=== PATIENT | male | born 1955 | race Caucasian/White ===

== ENCOUNTER 2016-10-19 12:41 | Emergency (ER) | payer SELFPAY ==
[~2016-10-19] VITALS: Ht 170.2 cm; Wt 100.0 kg
[~2016-10-19 12:41] MED LIST: NORCO 325 MG-51 TAB PO; SAW PALMETTO PO
[2016-10-19 12:44] VITALS: TEMP 97.3
[2016-10-19 13:23] LABS: BASO % 0.2 % (0.0-2.0); EOS # 0.1 (0.0-0.7); EOS % 0.6 % (0-4.0); GRAN % 83.5 % (42.2-75.2); HEMOGLOBIN 17.5 g/dl (13.5-18.0); LYMPH % 9.9 % (20.0-51.0); MEAN CELL VOLUME 93 fl (80.0-100.0); MEAN CORPUSCULAR HEMOGLOBIN 33 pg (27.0-31.0); MEAN CORPUSCULAR HGB CONC 36 g/dl (33.0-37.0); MONO # 0.5 (0.1-0.6); MONO % 5.4 % (1.7-9.3); PLATELET COUNT 160 K/mm3 (130-400); REDCELL DISTRIBUTION WIDTH-CV 11.9 % (11.5-14.5); WHITE BLOOD COUNT 9.6 K/mm3 (4.8-10.8)
[2016-10-19] MEDS ORDERED: BEET EXTRACT (13:30)
[2016-10-19 13:38] LABS: ADJUSTED CALCIUM 8.9 mg/dL (8.4-10.2); ALANINE AMINOTRANSFERASE 44 U/L (21-72); ALBUMIN 4.6 gm/dL (3.5-5.0); ALKALINE PHOSPHATASE 68 U/L (50-136); ANION GAP 13 mmol/L (7-16); BILIRUBIN,TOTAL 0.7 mg/dL (0.0-1.0); BLOOD UREA NITROGEN 13 mg/dL (9-20); CALCIUM 9.4 mg/dL (8.4-10.2); CARBON DIOXIDE 27 mmol/L (22-30); CHLORIDE 101 mmol/L (98-107); CREATININE, serum 0.94 mg/dL (0.66-1.25); GLUCOSE 112 mg/dL (74-106); SODIUM 140 mmol/L (137-145); TOTAL PROTEIN 7.9 gm/dL (6.4-8.2)
[2016-10-19 13:41] LABS: PROTHROMBIN TIME 10.8 SECONDS (9.7-12.8)
[2016-10-19 13:44] LABS: PARTIAL THROMBOPLASTIN TIME 28.9 SECONDS (26.0-37.0)
[2016-10-19 13:50] LABS: C-REACTIVE PROTEIN < 0.5 mg/dL (0.0-0.9); TROPONIN-I < 0.012 ng/mL (0.000-0.034)
[2016-10-19 14:45] VITALS: BP 156/98; PULSE 79
== END 2016-10-19 14:58 | disposition home or self-care (01) ==
LOC: COL.ER 12:41
PROVIDERS: Family Medicine
DX: R55 Syncope and collapse (principal)

== ENCOUNTER 2017-02-17 08:07 | Emergency (ER) | payer SELFPAY ==
[~2017-02-17] VITALS: Ht 170.2 cm; Wt 102.3 kg
[~2017-02-17 08:07] MED LIST changes: +BEET EXTRACT
[2017-02-17 08:16] VITALS: TEMP 98.2
[2017-02-17] MEDS ORDERED: [UNRECOGNIZED DRUG - OTHER] PO (08:55)
[2017-02-17] MEDS ORDERED: PRINIVIL10 MG PO (08:56)
[2017-02-17] MEDS ORDERED: ZYRTEC ALLERGY10 MG PO (08:56)
[2017-02-17] MEDS ORDERED: MOTRIN 200200 MG/TAB PO (08:57)
[2017-02-17 09:01] LABS: BASO % 0.1 % (0.0-2.0); EOS % 0.3 % (0-4.0); GRAN # 6.6 (1.4-6.5); GRAN % 82.6 % (42.2-75.2); HEMATOCRIT 51.7 % (42.0-52.0); LYMPH % 12.4 % (20.0-51.0); MEAN CELL VOLUME 91 fl (80.0-100.0); MEAN CORPUSCULAR HGB CONC 36 g/dl (33.0-37.0); MEAN PLATELET VOLUME 11.2 fl (7.4-10.4); MONO # 0.3 (0.1-0.6); MONO % 4.1 % (1.7-9.3); PLATELET COUNT 163 K/mm3 (130-400); RED BLOOD COUNT 5.67 M/mm3 (4.20-5.60); REDCELL DISTRIBUTION WIDTH-CV 12.1 % (11.5-14.5)
[2017-02-17 09:05] LABS: HEMOGLOBIN 18.4 g/dl (13.5-18.0); MEAN CORPUSCULAR HEMOGLOBIN 32 pg (27.0-31.0)
[2017-02-17 09:08] LABS: ADJUSTED CALCIUM 9.1 mg/dL (8.4-10.2); ALANINE AMINOTRANSFERASE 24 U/L (21-72); ALBUMIN 4.9 gm/dL (3.5-5.0); ALKALINE PHOSPHATASE 76 U/L (50-136); ANION GAP 15 mmol/L (7-16); BILIRUBIN,TOTAL 1.4 mg/dL (0.0-1.0); BLOOD UREA NITROGEN 16 mg/dL (9-20); CALCIUM 9.8 mg/dL (8.4-10.2); CARBON DIOXIDE 24 mmol/L (22-30); CHLORIDE 101 mmol/L (98-107); CREATININE, serum 0.76 mg/dL (0.66-1.25); GLUCOSE 129 mg/dL (74-106); LIPASE 117 U/L (23-300); POTASSIUM 5.3 mmol/L (3.4-5.0); SODIUM 140 mmol/L (137-145); TOTAL PROTEIN 8.6 gm/dL (6.4-8.2)
[2017-02-17 09:09] LABS: C-REACTIVE PROTEIN < 0.5 mg/dL (0.0-0.9)
[2017-02-17 10:12] LABS: PH 5 (5-8); SQUAMOUS EPITHELIAL None Seen /hpf; URINE APPEARANCE Clear; URINE BACTERIA None Seen /hpf; URINE BILIRUBIN Negative (NEGATIVE); URINE BLOOD 1+ (NEGATIVE); URINE COLOR Yellow; URINE GLUCOSE Negative (NEGATIVE); URINE KETONE Trace (NEGATIVE); URINE RBC 0-2 /hpf; URINE UROBILINOGEN Negative (NEGATIVE); URINE WBC 0-2 /hpf
[2017-02-17 12:15] VITALS: BP 143/102; PULSE 98
== END 2017-02-17 12:30 | disposition short-term general hospital (02) ==
LOC: COL.ER 08:07
PROVIDERS: Family Medicine
DX: G93.9 Disorder of brain, unspecified (principal); M54.2 Cervicalgia; I10 Essential (primary) hypertension; F17.210 Nicotine dependence, cigarettes, uncomplicated
CPT/HCPCS: J1170; J1200; J1885; J2405; J7030

== ENCOUNTER 2021-09-19 07:29 | Day surgery (SDC) | payer OTHER ==
[~2021-09-19] VITALS: Ht 172.7 cm; Wt 114.2 kg
[2021-09-19] VITALS (10 sets, daily range): BP systolic 118–143; BP diastolic 56–78; PULSE 70–87; TEMP 97.7–97.9
[~2021-09-19 07:29] MED LIST changes: +MOTRIN 200200 MG/TAB PO; +PRINIVIL10 MG PO; +ZYRTEC ALLERGY10 MG PO; +[UNRECOGNIZED DRUG - OTHER] PO
[2021-09-19] MEDS ORDERED: LEXAPRO 10MG10 MG PO (08:53)
[2021-09-19] MEDS ORDERED: LOPRESSOR 550 MG/TAB PO (08:54)
[2021-09-19] MEDS ORDERED: FLOMAX 0.40.4 MG/CAP PO (08:55)
[2021-09-19] MEDS ORDERED: LIPITOR 40MG TA40 MG PO (08:55)
[2021-09-19] MEDS ORDERED: TRULICITY0.75 MG/0. SQ (08:56)
[2021-09-19] MEDS ORDERED: NORVASC 5MG5 MG/TAB PO (08:56)
[2021-09-19] MEDS ORDERED: ALLERGY RELIEF PO (09:00)
[2021-09-19] MEDS ORDERED: [UNRECOGNIZED DRUG - OTHER] PO (09:00)
[2021-09-19] MEDS ORDERED: MASON NATURAL2000 IU PO (09:01)
--- NOTE | 2021-09-19 12:10 | NUR ---
PATIENT ADMITED INTO ROOM 322 POST OP. A&O. VSS. POWER TO DD WITH MOD AMOUNTS OF PINK, SEDIMENT URINE NOTED. CBI INFUSING AT FAST RATE. PACU REPORTED THEY HAD TO IRRIGATE BUT ONLY GOT ONE SMALL TISSUE CLOT. PATIENT POWER HAS BEEN DRAINING WELL SINCE. PATIENT ALSO C/O BLADDER SPASMS AND WAS GIVEN LEVSIN & B&O IN PACU. BLADDER SPASMS SEEMS TO BE BETTER. NO C/O N/V. WATER & ICE CHIPS AT BEDSIDE. IV FLUIDS INFUSING INTO LEFT WRIST VIA PUMP. HEAD TO TOE ASSESSMENT COMPLETE. AT BEDSIDE. ORIENTED TO ROOM. CALL LIGHT IN REACH.
[2021-09-20] VITALS (7 sets, daily range): BP systolic 121–148; BP diastolic 53–72; PULSE 78–91; TEMP 98.1–98.8
--- NOTE | 2021-09-20 02:00 | NUR ---
CBI RUNNING @ A MODERATELY SLOW RATE, DRAINAGE HAD BEEN PINK ET CLEAR EARLIER. DRAINAGE IS NOW WARNER RED ET CLOUDY, NO CLOTS SEEN. CBI RATE INCREASED TO A MODERATE RATE. IVF INFUSING. PT RESTING QUIETLY WITH EYES CLOSED. CALL LIGHT WITHIN REACH. PT HAS K-PAD ON RIGHT SHOULDER FOR PAIN, STATES THAT IT HAS HELPED RELIEVE PAIN.
--- NOTE | 2021-09-20 05:55 | NUR ---
CBI RATE DECREASED TO A SLOW RATE. DRAINAGE IS LIGHT PINK ET CLEAR. OCCASIONAL SMALL CLOTS ARE SEEN IN BAG. IVF INFUSING. PT SLEEPING. CALL LIGHT WITHIN REACH.
[2021-09-20 06:27] LABS: BASO % 0.2 % (0.0-2.0); EOS # 0.1 K/mm3 (0.0-0.7); EOS % 1.2 % (0-4.0); GRAN # 7.7 K/mm3 (1.4-6.5); GRAN % 74.8 % (42.2-75.2); HEMATOCRIT 44.3 % (42.0-52.0); HEMOGLOBIN 15.4 g/dl (13.5-18.0); LYMPH # 1.6 K/mm3 (1.2-3.4); LYMPH % 15.2 % (20.0-51.0); MEAN CELL VOLUME 93 fl (80.0-100.0); MEAN CORPUSCULAR HEMOGLOBIN 32 pg (27.0-31.0); MEAN CORPUSCULAR HGB CONC 35 g/dl (33.0-37.0); MEAN PLATELET VOLUME 10.5 fl (7.4-10.4); MONO # 0.9 K/mm3 (0.1-0.6); MONO % 8.4 % (1.7-9.3); PLATELET COUNT 163 K/mm3 (130-400); RED BLOOD COUNT 4.75 M/mm3 (4.20-5.60); REDCELL DISTRIBUTION WIDTH-CV 12.1 % (11.5-14.5)
--- NOTE | 2021-09-20 11:19 | NUR ---
Patient alert and oriented, answers questions appropriately. See assessment. Hopkins catheter in place, patent, draining dark red urine with occasional clots noted. CBI running at moderate rate. Hopkins catheter cares completed. No c/o at this time.
--- NOTE | 2021-09-20 13:09 | NUR ---
Chaplain dolan and offered support with patient.
--- NOTE | 2021-09-20 16:06 | NUR ---
Plan is to return in to [facility]. SW met with patient about care. Patient reports that he has a Milvia who support his care. Patient is slightly hard of hearing and must talk elevated.. Patient has a DTR who is the FRACISCO Romano . Patient shares that his pcp is Dr. [place] Ortega and Dr. Barboza. Patient indicated that he uses CPAP nightly but did not bring it because her was told that he was only going to stay one night. Patien shares that he prefers [facility] in [place] for medications and has some pain around the cath. Patient reports that she does not have any car concerns. Educated on services with case management. NF>
[2021-09-21 04:01] VITALS: BP 134/60; PULSE 85; TEMP 98
--- NOTE | 2021-09-21 06:04 | NUR ---
PT'S BLADDER PRIMED WITH APPROX. 300 mL OF IRRIGANT. POWER BALLOON DEFLATED AND 3 WAY CATHETER D.C.'D AT APPROXIMATELY 0535 THIS MORNING. PT IMMEDIATELY VOIDED 150 mL PLUS HE MISSED THE URINAL PROVIDED.
[2021-09-21 07:37] VITALS: BP 153/91; PULSE 80; TEMP 97.4
--- NOTE | 2021-09-21 09:30 | NUR ---
Patient alert and oriented, answers questions appropriately. See assessment. Hopkins catheter removed this am, six bottle routine in progress. Urine progressively police booking officer with no clots noted. No c/o urinary frequency or hesitancy. C/o urinary burning and leaking. No other c/o at this time.
[2021-09-21 11:07] VITALS: BP 132/72; PULSE 59; TEMP 98.1
[2021-09-21 11:41] VITALS: BP 131/69; PULSE 81; TEMP 97.7
== END 2021-09-21 12:50 | disposition home or self-care (01) ==
LOC: SDCO 07:29 → SURG 12:10 → SDCO 09-21 12:50
PROVIDERS: Urology
DX: N40.1 Benign prostatic hyperplasia with lower urinary tract symptoms (principal); R39.14 Feeling of incomplete bladder emptying; R39.12 Poor urinary stream; R35.1 Nocturia; F41.9 Anxiety disorder, unspecified; Z86.73 Personal history of transient ischemic attack (TIA), and cerebral infarction without residual deficits; E11.9 Type 2 diabetes mellitus without complications; I10 Essential (primary) hypertension; G47.33 Obstructive sleep apnea (adult) (pediatric); Z79.82 Long term (current) use of aspirin
CPT/HCPCS: OP; J1170; J1885; J2405; J2704; J3010; J7030; J7120